=== PATIENT | female | born 1965 | race Caucasian/White ===

== ENCOUNTER 2017-01-08 06:36 | Inpatient (IN) | payer SELFPAY ==
[~2017-01-08] VITALS: Ht 157.5 cm; Wt 70.3 kg
[~2017-01-08 06:36] MED LIST: ATOR10TA PO; ENAL10TA PO; LEVO100T9 PO
[2017-01-08] MEDS ORDERED: MORPHINE SULFATE 4 MG/ML CPJ (NOT FOR IM USE) IV STA (07:36)
[2017-01-08] MEDS ORDERED: ONDANSETRON HCL 4MG/2ML VIAL IV STA (07:36)
[2017-01-08] MEDS ORDERED: KETOROLAC 30MG/ML VIAL IV ONE (07:45)
[2017-01-08 07:57] LABS: BASOPHILS % 0.8 % (0.0-2.0); EOSINOPHILS % 3.2 % (0.0-5.0); HEMATOCRIT. 38.4 % (36.0-48.0); HEMOGLOBIN. 13.4 g/dL (12.0-16.0); LYMPHOCYTES % 38.2 % (20.0-50.0); MEAN CORPUSCULAR HEMOGLOBIN 29.8 pg (28.0-32.0); MEAN CORPUSCULAR VOLUME 85.4 fL (81.0-99.0); MEAN PLATELET VOLUME 7.9 fl (7.4-10.4); MONOCYTES % 6.1 % (2.0-8.0); NEUTROPHILS % 51.7 % (40.0-76.0); PLATELET 294 x1000/uL (130-400); RED CELL DISTRIBUTION WIDTH 13.1 % (11.6-14.6)
[2017-01-08 07:59] LABS: CLARITY URINE CLEAR (CLEAR); COLOR URINE YELLOW (YELLOW); GLUCOSE URINE NEGATIVE (NEGATIVE); KETONES URINE NEGATIVE (NEGATIVE); LEUKOCYTE ESTERASE URINE TRACE (NEGATIVE); NITRITE URINE NEGATIVE (NEGATIVE); OCCULT BLOOD URINE 2+ (NEGATIVE); PH URINE 5.5 (4.5-8.0); PROTEIN URINE NEGATIVE (NEGATIVE); SPECIFIC GRAVITY URINE 1.017 (1.005-1.030); UROBILINOGEN URINE 0.2 E.U./dL (0.2-1.0)
[2017-01-08 07:59] LABS: CHLORIDE 107 mEq/L (98-107)
[2017-01-08 08:01] LABS: PROTHROMBIN TIME 10.7 sec
[2017-01-08 08:04] LABS: CARBON DIOXIDE 28 mEq/L (21-32)
[2017-01-08] MEDS ORDERED: CLONIDINE 0.1MG TABLET PO PRN (12:00)
[2017-01-08] MEDS ORDERED: NA PHOS,M-B/NA PHOS,DI-BA ENEMA 118ML PR PRN (12:00)
[2017-01-08] MEDS ORDERED: LORAZEPAM 2MG/ML CPJ IV PRN (12:00)
[2017-01-08] MEDS ORDERED: ACETAMINOPHEN 325MG TABLET PO PRN (12:00)
[2017-01-08] MEDS ORDERED: HYDROMORPHONE HCL/PF 2MG/ML CPJ IV PRN (12:00)
[2017-01-08] MEDS ORDERED: DOCUSATE SODIUM 100MG CAPSULE PO PRN (12:00)
[2017-01-08] MEDS ORDERED: MAGNESIUM/ALUMINUM HYDROXIDE/SIMETHICONE 30ML UDC PO PRN (12:00)
[2017-01-08] MEDS ORDERED: ONDANSETRON HCL 4MG/2ML VIAL IV PRN (12:00)
[2017-01-08] MEDS ORDERED: DIPHENHYDRAMINE 50MG/ML VIAL IV PRN (12:00)
[2017-01-08] MEDS ORDERED: HYDROCODONE/ACETAMINOPHEN 5/325MG TABLET PO PRN (12:00)
[2017-01-08 12:27] VITALS: BP 136/83
[2017-01-08 12:30] VITALS: BP 128/90
[2017-01-08 13:08] LABS: CHLORIDE 108 mEq/L (98-107)
[2017-01-08 13:16] LABS: CARBON DIOXIDE 26 mEq/L (21-32)
[2017-01-08] MEDS ORDERED: ENOXAPARIN 40MG/0.4ML SYR SUBCUT SCH (14:00)
[2017-01-08] MEDS: ASPIRIN 81MG EC TABLET PO SCH (14:23)
[2017-01-08] MEDS ORDERED: SODIUM CHLORIDE 0.9% 10ML VIAL ONE (14:31)
[2017-01-08] MEDS ORDERED: IOHEXOL-350 100 ML BOTTLE ONE (14:31)
[2017-01-08] MEDS: LEVOTHYROXINE SODIUM 100MCG TABLET PO SCH (15:33)
[2017-01-08 16:00] VITALS: BP 102/76
[2017-01-08 20:00] VITALS: BP 127/78
[2017-01-08] MEDS ORDERED: ATORVASTATIN CALCIUM 10MG TABLET PO SCH (21:00)
[2017-01-09] VITALS: BP 132/81
[2017-01-09 04:00] VITALS: BP 147/90
[2017-01-09] MEDS: LEVOTHYROXINE SODIUM 100MCG TABLET PO SCH (06:53)
[2017-01-09 07:07] LABS: BASOPHILS % 0.4 % (0.0-2.0); EOSINOPHILS % 2.9 % (0.0-5.0); HEMATOCRIT. 38.1 % (36.0-48.0); HEMOGLOBIN. 13.3 g/dL (12.0-16.0); LYMPHOCYTES % 39.1 % (20.0-50.0); MEAN CORPUSCULAR HEMOGLOBIN 29.7 pg (28.0-32.0); MEAN PLATELET VOLUME 7.8 fl (7.4-10.4); MONOCYTES % 6.6 % (2.0-8.0); PLATELET 264 x1000/uL (130-400); RED BLOOD CELL COUNT 4.49 mill/uL (4.2-5.4)
[2017-01-09 07:52] LABS: CARBON DIOXIDE 26 mEq/L (21-32); CHLORIDE 106 mEq/L (98-107); HDL CHOLESTEROL 45 mg/dL (40-59); LDL CHOLESTEROL 156 mg/dL (5-100); T4 FREE 0.96 ng/dL (0.76-1.46)
[2017-01-09 08:00] VITALS: BP 133/80
[2017-01-09] MEDS: ASPIRIN 81MG EC TABLET PO SCH (08:59)
[2017-01-09] MEDS ORDERED: ENALAPRIL 10MG TABLET PO SCH (09:00)
[2017-01-09 11:55] VITALS: BP 133/80
== END 2017-01-09 12:20 | disposition home or self-care (01) | DRG 241 ==
LOC: ER 07:43 → 5WST 10:57 → ENRESERV 11:16 → 5WST 14:27
PROVIDERS: ADMIT Internal Medicine; ATTEND Internal Medicine
DX: K29.70 Gastritis, unspecified, without bleeding (principal); E87.8 Other disorders of electrolyte and fluid balance, not elsewhere classified; I10 Essential (primary) hypertension; N85.9 Noninflammatory disorder of uterus, unspecified; K52.9 Noninfective gastroenteritis and colitis, unspecified; E86.0 Dehydration; E03.9 Hypothyroidism, unspecified; R07.89 Other chest pain; E78.00 Pure hypercholesterolemia, unspecified; Z83.3 Family history of diabetes mellitus
CPT/HCPCS: 36415; 71010; 71275; 74174; 80048; 80053; 80061; 81001; 83690; 84439; 84443; 84484; 85025; 85610; 85730; 93005; 96374; 96375; 99285; A4216; J1650; J1885; J2405; J7040; Q9967

== ENCOUNTER 2017-10-20 21:49 | Emergency (ER) | payer MEDICAID ==
[~2017-10-20] VITALS: Ht 154.9 cm; Wt 68.0 kg
[2017-10-20] MEDS ORDERED: KETOROLAC 60MG/2ML VIAL IM ONE (23:15)
[2017-10-21] MEDS ORDERED: LIDOCAINE 5% PATCH TOP SCH (04:30)
[2017-10-21 06:04] LABS: CLARITY URINE CLEAR (CLEAR); COLOR URINE YELLOW (YELLOW); KETONES URINE NEGATIVE (NEGATIVE); LEUKOCYTE ESTERASE URINE NEGATIVE (NEGATIVE); NITRITE URINE NEGATIVE (NEGATIVE); OCCULT BLOOD URINE 2+ (NEGATIVE); PROTEIN URINE NEGATIVE (NEGATIVE); SPECIFIC GRAVITY URINE 1.033 (1.005-1.030); UROBILINOGEN URINE 0.2 E.U./dL (0.2-1.0)
[2017-10-21 06:31] LABS: HEMATOCRIT 37.6 % (36.0-48.0); HEMOGLOBIN 13.1 g/dL (12.0-16.0); MEAN CORPUSCULAR VOLUME 86.2 fL (81.0-99.0); PLATELET 293 x1000/uL (130-400); RED BLOOD CELL COUNT 4.36 mill/uL (4.2-5.4); RED CELL DISTRIBUTION WIDTH 13.5 % (11.6-14.6)
[2017-10-21 06:40] LABS: CHLORIDE 110 mEq/L (98-107)
[2017-10-21 08:26] VITALS: BP 145/85
== END 2017-10-21 08:28 | disposition home or self-care (01) ==
LOC: ER 21:49
DX: M54.89 Other dorsalgia (principal); D17.71 Benign lipomatous neoplasm of kidney; I10 Essential (primary) hypertension; E78.00 Pure hypercholesterolemia, unspecified; E05.90 Thyrotoxicosis, unspecified without thyrotoxic crisis or storm; K76.0 Fatty (change of) liver, not elsewhere classified; K44.9 Diaphragmatic hernia without obstruction or gangrene; Z90.89 Acquired absence of other organs
CPT/HCPCS: 36415; 72070; 74176; 80048; 81003; 85027; 96372; 99285; J1885

== ENCOUNTER 2023-10-09 04:17 | Emergency (ER) | payer MEDICAID ==
[~2023-10-09] VITALS: Ht 152.4 cm; Wt 78.0 kg
[~2023-10-09 04:17] MED LIST changes: +ENAL-77 PO; -ENAL10TA PO
[2023-10-09 06:46] LABS: BASOPHILS % 0.9 % (0.0-2.0); HEMATOCRIT. 39.7 % (36.0-48.0); HEMOGLOBIN. 13.6 g/dL (12.0-16.0); LYMPHOCYTES % 26.5 % (20.0-50.0); MEAN CORPUSCULAR HEMOGLOBIN 30.5 pg (28.0-32.0); MEAN CORPUSCULAR HGB CONC 34.3 g/dL (31.0-37.0); MEAN PLATELET VOLUME 7.9 fl (7.4-10.4); MONOCYTES % 6.7 % (2.0-8.0); NEUTROPHILS % 63.9 % (40.0-76.0); PLATELET 300 x1000/uL (130-400); RED BLOOD CELL COUNT 4.46 mill/uL (4.2-5.4); WHITE BLOOD COUNT 7.2 x1000/uL (4.5-11.0)
[2023-10-09] MEDS: KETOROLAC 30MG/ML VIAL IV STA (06:46)
[2023-10-09 06:56] LABS: ALANINE AMINOTRANSFERASE 50 IU/L (10-49); ALBUMIN 4.8 g/dL (3.2-4.8); ASPARTATE AMINOTRANSFERASE 37 IU/L (<34); BILIRUBIN TOTAL 0.5 mg/dL (0.1-1.0); CARBON DIOXIDE 24 mEq/L (21-32); CHLORIDE 108 mEq/L (98-107); CREATININE 0.6 mg/dL (0.6-1.0); GLUCOSE 120 mg/dL (70-105); PROTEIN TOTAL 7.9 g/dL (6.0-8.3); SODIUM 139 mEq/L (136-145); UREA NITROGEN BLOOD 13 mg/dL (9-23)
[2023-10-09 07:49] LABS: TROPONIN I HIGH SENSITIVITY < 4 ng/L (3.0-34)
[2023-10-09] MEDS ORDERED: MAGNESIUM/ALUMINUM HYDROXIDE/SIMETHICONE 30ML UDC PO PRN (08:45)
[2023-10-09] MEDS ORDERED: DOCUSATE SODIUM 100MG CAPSULE PO PRN (08:45)
[2023-10-09] MEDS ORDERED: ONDANSETRON HCL 4MG/2ML INJ IV PRN (08:45)
[2023-10-09] MEDS ORDERED: GUAIFENESIN 200MG/10ML SUGAR FREE UDC PO PRN (08:45)
[2023-10-09] MEDS ORDERED: ACETAMINOPHEN 325MG TABLET PO PRN ×2 (08:45)
[2023-10-09] MEDS ORDERED: IPRATROPIUM/ALBUTEROL 0.5-3(2.5)MG/3ML NEB HHN PRN (08:45)
[2023-10-09] MEDS ORDERED: CLONIDINE 0.1MG TABLET PO PRN (08:45)
[2023-10-09 10:00] VITALS: BP 150/78; PULSE 79; RESP 12; TEMP 98.6
[2023-10-09] MEDS ORDERED: LISINOPRIL 20MG TABLET PO SCH (10:00)
[2023-10-09] MEDS ORDERED: SODIUM CHLORIDE 0.9% 1,000 ML IV ONE (10:00)
[2023-10-09] MEDS ORDERED: FAMOTIDINE 20MG TABLET PO SCH ×2 (10:00→21:00)
[2023-10-09] MEDS ORDERED: LEVOTHYROXINE SODIUM 100MCG TABLET PO SCH (10:00)
[2023-10-09] MEDS ORDERED: ENOXAPARIN 40MG/0.4ML SYR SUBCUT SCH (10:00)
[2023-10-09 10:31] LABS: PHOSPHORUS 2.4 mg/dL (2.5-4.9); T4 FREE 0.94 ng/dL (0.89-1.76); THYROID STIMULATING HORMONE 3.24 uIU/mL (0.55-4.78)
[2023-10-09] MEDS ORDERED: ATORVASTATIN CALCIUM 10MG TABLET PO SCH (21:00)
== END 2023-10-09 10:03 | disposition home or self-care (01) ==
LOC: ER 04:17 → CANBEDREQ 10-11 00:25
DX: R10.13 Epigastric pain (principal); R07.89 Other chest pain; E78.00 Pure hypercholesterolemia, unspecified; I10 Essential (primary) hypertension; Z90.49 Acquired absence of other specified parts of digestive tract
CPT/HCPCS: 99285; 96374; 76705; 71045; 80053; 83036; 83880; 84439; 83690; 83735; 84100; 84443; 85025; 84484; 93005; 36415; J1885